=== PATIENT | male | born 1990 | race Hispanic/Latino ===

== ENCOUNTER 2018-12-12 13:59 | Emergency (ER) | payer OTHER | END 2018-12-12 15:16 | disposition home or self-care (01) | LOC: EDH 13:59 | DX: S40.011A Contusion of right shoulder, initial encounter (principal); S60.221A Contusion of right hand, initial encounter; V44.6XXA Car passenger injured in collision with heavy transport vehicle or bus in traffic accident, initial encounter; Y93.89 Activity, other specified; Y92.410 Unspecified street and highway as the place of occurrence of the external cause; Y99.8 Other external cause status | CPT/HCPCS: 73030; 73130 ==